=== PATIENT | male | born 1950 | race African-American/Black ===

== ENCOUNTER 2016-07-15 09:45 | Day surgery (SDC) | payer BC ==
[2016-07-15] MEDS ORDERED: Sodium Chloride 0.9% 10 ML Syringe FLUSH PRN (10:00)
[2016-07-15] MEDS ORDERED: Lactated Ringers 1,000 ML IV SCH (10:00)
[2016-07-15] MEDS ORDERED: fentaNYL 100 MCG/2 ML SDV ONE (11:58)
[2016-07-15] MEDS ORDERED: Propofol 200 MG/20 ML SDV ONE ×2 (11:59→12:10)
[2016-07-15] MEDS ORDERED: Midazolam 1 MG/ML 2 ML SDV ONE (11:59)
--- NOTE | 2016-07-15 12:05 | PCM.PN ---
- General Info Date of Service: 07/15/16 - Review of Systems Systems Review Comment:: 66-year-old male referred for colonoscopy. He states his last colonoscopy was over 10 years ago. He does recall that there were some polyps removed at that time. He denies any recent change in bowel habits or rectal bleeding. He is medically stable to proceed today with no significant change in his health status since his last history and physical which is reviewed. I discussed the proposed colonoscopy with the patient. Risks reviewed included but were not limited to bleeding and GI injury. He appears to understand and agrees to proceed. - Patient Data Vitals - most recent: Last Vital Signs Temp 97.8 F 07/15/16 10:19 Pulse 52 L 07/15/16 10:19 Resp 20 07/15/16 10:19 BP 150/102 H 07/15/16 10:19 Pulse Ox 100 07/15/16 10:19 Weight - most recent: 91.626 kg Med Orders - Current: Current Medications Lactated Ringer's (Ringers, Lactated) 1,000 mls @ 125 mls/hr IV ASDIRECTED JUAN Last Admin: 07/15/16 10:59 Dose: 125 mls/hr Sodium Chloride (Saline Flush) 10 ml FLUSH ASDIRECTED PRN PRN Reason: Keep Vein Open Discontinued Medications Fentanyl (Sublimaze) Confirm Administered Dose 100 mcg .ROUTE .STK-MED ONE Stop: 07/15/16 11:59 Midazolam HCl (Versed 1 Mg/Ml) Confirm Administered Dose 2 mg .ROUTE .STK-MED ONE Stop: 07/15/16 12:00 Propofol (Diprivan 20 Ml) Confirm Administered Dose 400 mg .ROUTE .STK-MED ONE Stop: 07/15/16 12:00 - Problem List Review Problem List Initiated/Reviewed/Updated: Yes - My Orders Last 24 Hours: My Active Orders 07/15/16 10:00 Patient Status [ADT] Routine Peripheral IV Care [RC] . DIRECTED Verify Patient Consent Obtain [RC] ASDIRECTED Lactated Ringers [Ringers, Lactated] 1,000 ml IV ASDIRECTED Sodium Chloride 0.9% [Saline Flush] 10 ml FLUSH ASDIRECTED PRN Peripheral IV Insertion Adult [OM.PC] Routine - Assessment Assessment:: Colon cancer screening History of colon polyps - Plan Plan:: Colonoscopy
--- NOTE | 2016-07-15 12:45 | PCM.OPNOTE ---
- General Post-Op/Procedure Note Date of Surgery/Procedure: 07/15/16 Operative Procedure(s): Colonoscopy with polypectomy Findings: Extensive diverticulosis throughout the left colon but without acute inflammation Polyps in the sigmoid colon and splenic flexure Pre Op Diagnosis: History of colon polyps Post-Op Diagnosis: Colon polyps and diverticulosis Anesthesia Technique: MAC Primary Surgeon: Norman Duncan Pathology: Colon Polyps Output, Urine Amount: 0 EBL in mLs: 0 Complications: None Condition: Good Free Text/Narrative:: Intake & Output 07/14/16 07/15/16 07/15/16 22:59 06:59 14:59 Intake Total 900 Balance 900
--- NOTE | 2016-07-15 16:47 | OR ---
Date of Procedure: 07/15/2016 PREOPERATIVE DIAGNOSIS: History of colon polyps. POSTOPERATIVE DIAGNOSES: Colon polyps and diverticulosis. TEST PERFORMED: Colonoscopy with polypectomy. INDICATIONS FOR SURGERY: This 66-year-old male is referred for colonoscopy. His last colon exam was over 10 years ago and some polyps were identified at that time. FINDINGS: The patient has a cluster of two polyps in the region of the splenic flexure. These range in size from 7 to 5 mm and are pedunculated, and the patient has another polyp, also 7 mm in size which is pedunculated and located in the sigmoid colon at 35 cm level. The patient has extensive diverticulosis with multiple diverticula noted throughout the left colon. There was no sign of acute inflammation or infection. PROCEDURE IN DETAIL: The patient was taken to the operating room. He was given intravenous sedation, and with him in the left lateral decubitus position, digital rectal exam was performed showing no rectal masses. The Olympus colonoscope was inserted into the rectum. Retroflexed examination of the rectal canal is performed. The scope was advanced to the sigmoid region where the above-described polyp was identified. This was removed with a cautery snare and retrieved into a polyp trap. The scope was then advanced up to the splenic flexure area where the two above-described polyps were identified. These were both removed with a cautery snare and retrieved into a polyp trap. All polyps were submitted to the pathologist. The scope was then carefully advanced through the transverse and ascending colon until the cecum was reached. Cecal acquisition was confirmed by noting the normal internal cecal anatomy including the appendiceal orifice and ileocecal valve. After examining the cecum, the scope was slowly withdrawn sequentially re-examining the colonic segments until the entire colon and rectum had been fully examined. The scope was then removed and the patient was taken from the operating room in satisfactory condition. ESTIMATED BLOOD LOSS: Zero. COMPLICATIONS: None. PROGNOSIS: Good. DESHAWN Duncan MD /[id number]
[2016-07-15 18:29] VITALS: BP 121/84
== END 2016-07-15 13:55 | disposition home or self-care (01) ==
LOC: LL.SDS 09:45
PROVIDERS: ATTEND Surgery
DX: Z12.11 Encounter for screening for malignant neoplasm of colon (principal); D12.5 Benign neoplasm of sigmoid colon; D12.3 Benign neoplasm of transverse colon; K57.30 Diverticulosis of large intestine without perforation or abscess without bleeding; E89.0 Postprocedural hypothyroidism; Z79.899 Other long term (current) drug therapy
CPT/HCPCS: 45385; J2250; J2704; J3010; J7120

== ENCOUNTER 2016-09-17 12:23 | Observation (INO) | payer BC ==
[2016-09-17] MEDS ORDERED: Nitroglycerin 0.4 MG Tab.SL SL ONE (12:24)
[2016-09-17] MEDS ORDERED: Sodium Chloride 0.9% 10 ML Syringe FLUSH PRN (12:25)
--- NOTE | 2016-09-17 13:09 | EDM.PDOC ---
ED HPI GENERAL MEDICAL PROBLEM - General Chief Complaint: General Stated Complaint: Shoulder pain, Chest pain Time Seen by Provider: 09/17/16 12:45 Source of Information: Reports: Patient History Limitations: Reports: No Limitations - History of Present Illness INITIAL COMMENTS - FREE TEXT/NARRATIVE: Woke this morning with left sided chest pain. Patient points to left chest and shoulder area as region of discomfort. Pain constant. Unchanging with breathing/ moving/position changes. Denies SOB/nausea/sweating. Denies other complaints. Has had episodes similar to this in past. Pain is left sided and lasts 2-3 days before resolving. No specific trigger identified. Was seen in ER twice in [place] around for same complaint. Workup included stress test. Unremarkable per patient. No cardiac pathology found. ROS otherwise negative. He is not aware of any cardiac disease in family history. Was out gardening yesterday. Also performed his routine "exercises" at home. Left Shoulder Pain Score (Numeric/FACES): 2 - Related Data Allergies Allergy/AdvReac Type Severity Reaction Status Date / Time No Known Allergies Allergy Verified 07/15/16 02:30 Home Meds: Home Meds Ascorbate Calcium/Bioflavonoid [Sharon-C 500 MG] 1 tab PO DAILY 07/15/16 [History ] Cyanocobalamin (Vitamin B-12) [B-12] 1,000 mcg PO DAILY 07/15/16 [History] Fish Oil/Borage/Flax/Om3,6,9#1 [[place] 3-6-9 Complex Softgel] 400 mg PO DAILY [History] Levothyroxine Sodium 88 mcg PO DAILY 07/15/16 [History] Pyridostigmine [place] [Mestinon] 60 mg PO QID 07/15/16 [History] Vitamin B Complex 1 cap PO DAILY 07/15/16 [History] Past Medical History HEENT History: Reports: Cataract Cardiovascular History: Reports: High Cholesterol Respiratory History: Reports: None Gastrointestinal History: Reports: None Genitourinary History: Reports: None Musculoskeletal History: Reports: None Neurological History: Reports: Other (See Below) (myasthenia gravis) Psychiatric History: Reports: None Endocrine/Metabolic History: Reports: Obesity/BMI 30+ Hematologic History: Reports: B12 Deficiency Immunologic History: Reports: None Oncologic (Cancer) History: Reports: None Dermatologic History: Reports: None - Past Surgical History Head Surgeries/Procedures: Reports: None HEENT Surgical History: Reports: Cataract Surgery Endocrine Surgical History: Reports: Thyroidectomy Social & Family History - Tobacco Use Smoking Status *Q: Never Smoker Second Hand Smoke Exposure: No - Caffeine Use Caffeine Use: Reports: Tea - Recreational Drug Use Recreational Drug Use: No ED ROS GENERAL - Review of Systems Review Of Systems: See Below Constitutional: Reports: No Symptoms HEENT: Reports: No Symptoms Respiratory: Reports: No Symptoms. Denies: Shortness of Breath, Wheezing, Pleuritic Chest Pain, Cough, Sputum, Hemoptysis Cardiovascular: Reports: Chest Pain (see HPI). Denies: Dyspnea on Exertion, Edema, Lightheadedness, Orthopnea, Palpitations, Syncope GI/Abdominal: Reports: No Symptoms : Reports: No Symptoms Musculoskeletal: Reports: Shoulder Pain (see HPI). Denies: Arm Pain, Back Pain , Hand Pain, Joint Swelling, Muscle Stiffness Skin: Reports: No Symptoms Neurological: Reports: No Symptoms Psychiatric: Reports: No Symptoms ED EXAM, GENERAL - Physical Exam Exam: See Below Exam Limited By: No Limitations General Appearance: Alert, WD/WN, No Apparent Distress Eye Exam: Bilateral Eye: EOMI, PERRL Ears: Normal External Exam Nose: Normal Inspection Throat/Mouth: Normal Inspection, Normal Lips, Normal Voice, No Airway Compromise Head: Atraumatic, Normocephalic Neck: Normal Inspection, Supple, Non-Tender, Full Range of Motion. No: Carotid Bruit, Lymphadenopathy (L), Lymphadenopathy (R) Respiratory/Chest: No Respiratory Distress, Lungs Clear, Normal Breath Sounds, No Accessory Muscle Use, Chest Non-Tender Cardiovascular: Normal Peripheral Pulses, Regular Rate, Rhythm, No Edema, No Gallop, No JVD, No Murmur Peripheral Pulses: 2+: Radial (L), Radial (R) GI/Abdominal: Normal Bowel Sounds, Soft, Non-Tender, No Distention, No Mass (Male) Exam: Deferred Rectal (Males) Exam: Deferred Back Exam: Normal Inspection. No: CVA Tenderness (L), CVA Tenderness (R), Paraspinal Tenderness, Vertebral Tenderness Extremities: Normal Inspection, Normal Range of Motion, Non-Tender, No Pedal Edema, Normal Capillary Refill Neurological: Alert, Oriented, CN II-XII Intact, Normal Cognition, Normal Gait, No Motor/Sensory Deficits Psychiatric: Normal Affect, Normal Mood Skin Exam: Warm, Dry, Intact, Normal Color, No Rash EKG INTERPRETATION EKG Date: 09/17/16 Time: 12:58 Rhythm: Other (Sinus rhythm) Rate (Beats/Min): 70 [place]: Normal P-Wave: Present QRS: Normal ST-T: Normal QT: Normal Comparison: NA - No Prior EKG EKG Interpretation Comments: P-R interval 213/prolonged consistent with 1st degree AV block. Intermittent premature atrial complexes noted. Course - Vital Signs Last Recorded V/S: Last Vital Signs Temp 36.7 C 09/17/16 12:45 Pulse 67 09/17/16 14:08 Resp 18 09/17/16 14:08 BP 114/84 09/17/16 14:08 Pulse Ox 98 09/17/16 14:55 - Orders/Labs/Meds Orders: Active Orders 24 hr Category Date Time Status Chest 2V [CR] Stat Exams 09/17/16 13:03 Taken Sodium Chloride 0.9% [Saline Flush] Med 09/17/16 12:25 Active 10 ml FLUSH ASDIRECTED PRN Saline Lock Insert [OM.PC] Routine Oth 09/17/16 12:25 Ordered Medication Orders Acetaminophen (Tylenol) 650 mg PO Q4H PRN PRN Reason: analgesia/fever Levothyroxine Sodium (Synthroid) 88 mcg PO DAILY JUAN Non-Formulary Medication (Pyridostigmine) 60 mg PO QID JUAN Sodium Chloride (Saline Flush) 10 ml FLUSH ASDIRECTED PRN PRN Reason: Keep Vein Open Labs: Laboratory Tests 09/17/16 09/17/16 09/17/16 Range/Units 13:03 13:03 13:15 WBC 4.8 (4.0-10.2) K/uL RBC 4.82 (4.33-5.41) M/uL Hgb 13.5 (13.1-16.8) g/dL Hct 38.6 L (39.0-49.0) % MCV 80.1 L (84.0-98.0) fL MCH 28.0 L (28.2-33.3) pg MCHC 35.0 (31.7-36.0) g/dL RDW 13.8 (11.2-14.1) % Plt Count 197 (150-350) K/uL Neut % (Auto) 46.9 (45.0-80.0) % Lymph % (Auto) 40.7 (10.0-50.0) % [place] % (Auto) 11.0 (2.0-14.0) % Eos % (Auto) 0.8 (0.0-5.0) % Baso % (Auto) 0.6 (0.0-2.0) % Neut # (Auto) 2.25 (1.40-7.00) K/uL Lymph # (Auto) 1.96 (0.50-3.50) K/uL [place] # (Auto) 0.53 (0.00-1.00) K/uL Eos # (Auto) 0.04 (0.00-0.50) K/uL Baso # (Auto) 0.03 (0.00-0.20) K/uL PT (9.8-11.7) SEC INR Sodium 142 (136-145) mmol/L Potassium 4.1 (3.5-5.1) mmol/L Chloride 108 H (98-107) mmol/L Carbon Dioxide 29.0 (21.0-32.0) mmol/L BUN 12 (7-18) mg/dL Creatinine 0.81 (0.51-1.17) mg/dL Est Cr Clr Drug Dosing 86.79 mL/min Estimated GFR (MDRD) > 60 mL/min Glucose 95 (74-106) mg/dL Calcium 8.7 (8.5-10.1) mg/dL Total Bilirubin 0.9 (0.2-1.0) mg/dL AST 33 (15-37) U/L ALT 42 (12-78) U/L Alkaline Phosphatase 62 (46-116) IU/L Creatine Kinase (26-308) U/L Creatine Kinase Index (0.0-2.5) % CK-MB (CK-2) (0.00-3.60) ng/mL Troponin I 0.026 (0.000-0.056) ng/mL Total Protein 7.4 (6.4-8.2) g/dL Albumin 3.6 (3.4-5.0) g/dL Specimen Type Urinblad Urine Color Yellow Urine Appearance Clear Urine pH 6.5 (5.0-9.0) Ur Specific [place] 1.015 (1.005-1.030) Urine Protein Negative (NEGATIVE) mg/dL Urine Glucose (UA) Negative (NEGATIVE) mg/dL Urine Ketones Negative (NEGATIVE) mg/dL Urine Occult Blood Negative (NEGATIVE) Urine Nitrite Negative (NEGATIVE) Urine Bilirubin Negative (NEGATIVE) Urine Urobilinogen 0.2 (0.2-1.0) E.U./dL Ur Leukocyte Esterase Negative (NEGATIVE) Urine RBC 0-5 /HPF Urine WBC 0-5 /HPF Ur Epithelial Cells Not seen /LPF Urine Bacteria Not seen (NONE TO FEW) /HPF 09/17/16 09/17/16 Range/Units 13:15 13:15 WBC (4.0-10.2) K/uL RBC (4.33-5.41) M/uL Hgb (13.1-16.8) g/dL Hct (39.0-49.0) % MCV (84.0-98.0) fL MCH (28.2-33.3) pg MCHC (31.7-36.0) g/dL RDW (11.2-14.1) % Plt Count (150-350) K/uL Neut % (Auto) (45.0-80.0) % Lymph % (Auto) (10.0-50.0) % [place] % (Auto) (2.0-14.0) % Eos % (Auto) (0.0-5.0) % Baso % (Auto) (0.0-2.0) % Neut # (Auto) (1.40-7.00) K/uL Lymph # (Auto) (0.50-3.50) K/uL [place] # (Auto) (0.00-1.00) K/uL Eos # (Auto) (0.00-0.50) K/uL Baso # (Auto) (0.00-0.20) K/uL PT 11.4 (9.8-11.7) SEC INR 1.1 Sodium (136-145) mmol/L Potassium (3.5-5.1) mmol/L Chloride (98-107) mmol/L Carbon Dioxide (21.0-32.0) mmol/L BUN (7-18) mg/dL Creatinine (0.51-1.17) mg/dL Est Cr Clr Drug Dosing mL/min Estimated GFR (MDRD) mL/min Glucose (74-106) mg/dL Calcium (8.5-10.1) mg/dL Total Bilirubin (0.2-1.0) mg/dL AST (15-37) U/L ALT (12-78) U/L Alkaline Phosphatase (46-116) IU/L Creatine Kinase 296 (26-308) U/L Creatine Kinase Index 0.7 (0.0-2.5) % CK-MB (CK-2) 2.10 (0.00-3.60) ng/mL Troponin I (0.000-0.056) ng/mL Total Protein (6.4-8.2) g/dL Albumin (3.4-5.0) g/dL Specimen Type Urine Color Urine Appearance Urine pH (5.0-9.0) Ur Specific [place] (1.005-1.030) Urine Protein (NEGATIVE) mg/dL Urine Glucose (UA) (NEGATIVE) mg/dL Urine Ketones (NEGATIVE) mg/dL Urine Occult Blood (NEGATIVE) Urine Nitrite (NEGATIVE) Urine Bilirubin (NEGATIVE) Urine Urobilinogen (0.2-1.0) E.U./dL Ur Leukocyte Esterase (NEGATIVE) Urine RBC /HPF Urine WBC /HPF Ur Epithelial Cells /LPF Urine Bacteria (NONE TO FEW) /HPF Meds: Medications Generic Name Dose Route Start Last Admin Trade Name Freq PRN Reason Stop Dose Admin Acetaminophen 650 mg 09/17/16 15:00 Tylenol PO Q4H PRN analgesia/fever Levothyroxine Sodium 88 mcg 09/18/16 08:00 Synthroid PO DAILY JUAN Non-Formulary Medication 60 mg 09/17/16 16:00 Pyridostigmine PO QID JUAN Sodium Chloride 10 ml 09/17/16 12:25 Saline Flush FLUSH ASDIRECTED PRN Keep Vein Open Discontinued Medications Generic Name Dose Route Start Last Admin Trade Name Freq PRN Reason Stop Dose Admin Nitroglycerin 0.4 mg 09/17/16 12:24 09/17/16 12:33 Nitrostat SL 09/17/16 12:25 0.4 mg ONETIME ONE Administration Nitroglycerin 0.4 mg 09/17/16 15:00 Nitrostat SL 09/17/16 15:11 Q5M PRN Chest Pain - Radiology Interpretation Free Text/Narrative:: Chest film showed no acute abnormalities - Re-Assessments/Exams Free Text/Narrative Re-Assessment/Exam: 09/17/16 15:40 Initial workup including EKG/Troponin/labs/chest xray overall unremarkable. Pain resolved completely after single NTG given. Admitted for further observation and serial troponins. Differential includes cardiac/GI/musc-skel etiology. Again, patient had recent negative stress test as well as two other ER evaluations for this same pain earlier this year. Departure - Departure Time of Disposition: 14:00 Disposition: Refer to Observation Clinical Impression: Myasthenia gravis Chest pain Qualifiers: Chest pain type: unspecified Qualified Code(s): R07.9 - Chest pain, unspecified - Discharge Information - Problem List & Annotations (1) Chest pain SNOMED Code(s): 10966610 Code(s): R07.9 - CHEST PAIN, UNSPECIFIED Status: Acute Priority: High Current Visit: Yes Annotation/Comment:: Serial Troponin/CKMB/EKG ordered. Currently pain-free. Qualifiers: Chest pain type: unspecified Qualified Code(s): R07.9 - Chest pain, unspecified (2) Myasthenia gravis SNOMED Code(s): 64517781 Code(s): G70.00 - MYASTHENIA GRAVIS WITHOUT (ACUTE) EXACERBATION Status: Chronic Priority: Low Current Visit: No - Problem List Review Problem List Initiated/Reviewed/Updated: Yes - My Orders Last 24 Hours: My Active Orders 09/17/16 12:25 Sodium Chloride 0.9% [Saline Flush] 10 ml FLUSH ASDIRECTED PRN Saline Lock Insert [OM.PC] Routine 09/17/16 13:03 Chest 2V [CR] Stat - Assessment/Plan Admission H&P: Please use this note as an admission H&P Last 24 Hours: My Active Orders 09/17/16 12:25 Sodium Chloride 0.9% [Saline Flush] 10 ml FLUSH ASDIRECTED PRN Saline Lock Insert [OM.PC] Routine 09/17/16 13:03 Chest 2V [CR] Stat Assessment:: as above Plan: as above
[2016-09-17 13:36] LABS: CHLORIDE,CL 108 mmol/L (98-107); SODIUM,NA 142 mmol/L (136-145)
[2016-09-17] MEDS ORDERED: Acetaminophen 325 MG Tab PO PRN (15:00)
[2016-09-17] MEDS ORDERED: Nitroglycerin 0.4 MG Tab.SL SL PRN (15:00)
[2016-09-17] MEDS ORDERED: Non-Formulary Medication 1 Each (Pyridostigmine 60 MG) PO SCH (16:00)
[2016-09-18 06:20] VITALS: BP 122/67
[2016-09-18] MEDS ORDERED: Levothyroxine 88 MCG Tab PO SCH (08:00)
--- NOTE | 2016-09-18 10:52 | PCM.DCSUM1 ---
Discharge Summary - Discharge Data Discharge Date: 09/18/16 Discharge Disposition: Home, Self-Care 01 Condition: Good - Discharge Diagnosis/Problem(s) (1) Chest pain SNOMED Code(s): 96840531 ICD Code: R07.9 - CHEST PAIN, UNSPECIFIED Status: Acute Priority: High Current Visit: Yes Problem Details: Patient remained pain-free during admission. Troponin/CKMB normal. Qualifiers: Chest pain type: unspecified Qualified Code(s): R07.9 - Chest pain, unspecified (2) Myasthenia gravis SNOMED Code(s): 80838899 ICD Code: G70.00 - MYASTHENIA GRAVIS WITHOUT (ACUTE) EXACERBATION Status: Chronic Priority: Low Current Visit: No - Patient Summary/Data Complications: None Recommended Follow-up Testing/Procedures: Patient to call primary provider's office on Tuesday and arrange follow up appointment as well as referral to Cardiology for further evaluation of the chest pain. Hospital Course: Patient symptom-free after admission. Vital signs stable. monitoring tech continued to show sinus rhythm with PACs. Serial troponin/CKMB negative. No acute ST changes noted on EKGs. - Patient Instructions Diet: Heart Healthy Diet Activity: As Tolerated, No Strenuous Activities Driving: May Drive Today Showering/Bathing: May Shower Other/Special Instructions: Return to ER if chest pain returns, especially if accompanied by shortness of breath, diaphoresis, or nausea. - Discharge Plan Prescriptions/Med Rec: Nitroglycerin 0.3 mg SL ASDIRECTED PRN #1 bottle PRN Reason: Chest Pain Home Medications: Home Meds Ascorbate Calcium/Bioflavonoid [Sharon-C 500 MG] 1 tab PO DAILY 07/15/16 [History ] Cyanocobalamin (Vitamin B-12) [B-12] 1,000 mcg PO DAILY 07/15/16 [History] Fish Oil/Borage/Flax/Om3,6,9#1 [[place] 3-6-9 Complex Softgel] 400 mg PO DAILY [History] Levothyroxine Sodium 88 mcg PO DAILY 07/15/16 [History] Pyridostigmine [place] [Mestinon] 60 mg PO QID 07/15/16 [History] Vitamin B Complex 1 cap PO DAILY 07/15/16 [History] Nitroglycerin 0.3 mg SL ASDIRECTED PRN #1 bottle 09/18/16 [Rx] Patient Handouts: Nonspecific Chest Pain, [id number] Forms: ED Department Discharge Referrals: Esvin Morgan PA [Primary Care Provider] - - Discharge Summary/Plan Comment DC Time >30 min.: No Discharge Summary/Plan Comment: Patient to scrap picker Nitro SL for prn use if chest pain returns. He is to follow up Tuesday by phone with primary provider and arrange follow up appointment as well as referral to Cardiology. Extensive precautions reviewed prior to discharge. Patient knows he is to return to the ER if he re-develops the chest pain. - General Info Date of Service: 09/18/16 Admission Dx/Problem (Free Text: left sided chest pain, relieved in ER with one Nitro SL. Subjective Update: Patient feels good. No complaints. Functional Status: Reports: pain controlled, tolerating diet, ambulating, urinating - Review of Systems General: Reports: No Symptoms HEENT: Reports: no symptoms Pulmonary: Reports: no symptoms Cardiovascular: Reports: No Symptoms Gastrointestinal: Reports: No symptoms Genitourinary: Reports: no symptoms Musculoskeletal: Reports: no symptoms Skin: Reports: no symptoms Neurological: Reports: No Symptoms Psychiatric: Reports: no symptoms - Patient Data Vitals - Most Recent: Last Vital Signs Temp 36.5 C 09/18/16 06:00 Pulse 54 L 09/18/16 06:00 Resp 16 09/18/16 06:00 BP 122/67 09/18/16 06:00 Pulse Ox 100 09/18/16 06:00 Weight - Most Recent: 93.894 kg I&O - Last 24 hours: Intake & Output 09/17/16 09/18/16 09/18/16 22:59 06:59 14:59 Intake Total 240 180 Balance 240 180 Lab Results - Last 24 hrs: Laboratory Results - last 24 hr 09/17/16 09/17/16 09/18/16 Range/Units 17:45 23:15 09:25 Creatine Kinase 192 (26-308) U/L Creatine Kinase Index 0.7 (0.0-2.5) % CK-MB (CK-2) 1.30 (0.00-3.60) ng/mL Troponin I 0.025 0.020 0.015 (0.000-0.056) ng/mL Med Orders - Current: Current Medications Acetaminophen (Tylenol) 650 mg PO Q4H PRN PRN Reason: analgesia/fever Levothyroxine Sodium (Synthroid) 88 mcg PO DAILY [facility] Last Admin: 09/18/16 07:41 Dose: 88 mcg Sodium Chloride (Saline Flush) 10 ml FLUSH ASDIRECTED PRN PRN Reason: Keep Vein Open Discontinued Medications Nitroglycerin (Nitrostat) 0.4 mg SL ONETIME ONE Stop: 09/17/16 12:25 Last Admin: 09/17/16 12:33 Dose: 0.4 mg Nitroglycerin (Nitrostat) 0.4 mg SL Q5M PRN PRN Reason: Chest Pain Stop: 09/17/16 15:11 Non-Formulary Medication (Pyridostigmine) 60 mg PO QID JUAN - Exam General: Reports: alert, oriented, cooperative, no acute distress HEENT: Reports: Pupils equal, Pupils reactive, EOMI, Mucous membr. moist/pink Neck: Reports: supple Lungs: Reports: Clear to auscultation, Normal respiratory effort Cardiovascular: Reports: Regular Rhythm, Irregular Rhythm. Denies: Murmurs Abdomen: Reports: bowel sounds present, soft, no tenderness, no distension Back Exam: Denies: Muscle Spasm Extremities: Reports: no tenderness/swelling Skin: Reports: warm, dry, intact Neurological: Reports: no new focal deficit Psy/Mental Status: Reports: alert, normal affect, normal mood EKG INTERPRETATION EKG Date: 09/18/16 Time: 10:09 Rhythm: Other (Sinus with intermittent PACs, borderline 1st degree AV block) Rate (Beats/Min): 60 [place]: Normal P-Wave: Present QRS: Normal ST-T: Normal QT: Shortened Comparison: No Change *Q Meaningful Use (DIS) - VTE *Q VTE Criteria *Q: - Stroke *Q Stroke Criteria *Q: - AMI *Q AMI Criteria *Q:
== END 2016-09-18 11:30 | disposition home or self-care (01) ==
LOC: LL.ED 12:23 → LL.MS 13:45
PROVIDERS: ADMIT Emergency Medicine; ATTEND Emergency Medicine
DX: R07.89 Other chest pain (principal); G70.00 Myasthenia gravis without (acute) exacerbation; E78.00 Pure hypercholesterolemia, unspecified; E66.9 Obesity, unspecified; E53.8 Deficiency of other specified B group vitamins; E89.0 Postprocedural hypothyroidism; Z98.49 Cataract extraction status, unspecified eye; Z79.899 Other long term (current) drug therapy
CPT/HCPCS: 36000; 36415; 71020; 80053; 81001; 82550; 82553; 84484; 85025; 85610; 93005; 99285; A9270; G0378

== ENCOUNTER 2017-04-24 12:02 | Emergency (ER) | payer BC ==
[2017-04-24 12:08] VITALS: BP 190/114
[2017-04-24] MEDS ORDERED: Aspirin 81 MG Tab.Chew ONE (12:39)
[2017-04-24] MEDS ORDERED: Aspirin 81 MG Tab.Chew PO ONE (12:40)
[2017-04-24 13:01] LABS: CHLORIDE,CL 106 mmol/L (98-107); SODIUM,NA 143 mmol/L (136-145)
--- NOTE | 2017-04-25 17:04 | ER ---
PATIENT NAME: DONNY BERRY : 1950 DATE: 04/24/2017 The patient is a 66-year-old male was brought in by son with chief complaint of weakness in his left side, difficulty walking and slurred speech. The patient states he was shoveling snow the night before coming in at around 6:00 p.m. and started feeling weak on the left side with numbness of his left side. After he started feeling the above complaints, he went inside the house, took a shower and then started with left-sided tingling with increased numbness in his left side of the face. He also had headaches the night prior to coming to the ER. PHYSICAL EXAMINATION: GENERAL: Revealed an alert, oriented gentleman in mild discomfort. HEENT: Eyes were PERRLA. Extraocular movement intact. Right eyelid was weak secondary to myasthenia gravis. Left face weakness with slurred speech. No tongue deviation. NECK: Supple. LUNGS: Clear to auscultation. No rales, no rhonchi, no wheezing. HEART: Regular rate and rhythm. No murmurs, no gallops. ABDOMEN: Soft, nontender. No masses. No organomegaly. EXTREMITIES: Show full range of motion. No weakness to strength. Strength was equal bilaterally. The patient did complain of left leg weakness, felt that if he attempted to walk he would fall. ASSESSMENT: At this time is possible right cerebrovascular accident, weakness in left side, difficulty walking, numbness in his left side of the face and slurred speech. PLAN: At this time, we did a CAT scan, showed no intracranial bleeding. We spoke with Neurology on-call at [facility] and Neurology will transfer him to obtain an MRI and follow stroke protocol.
== END 2017-04-24 12:57 ==
LOC: LL.ED 12:02
DX: R26.2 Difficulty in walking, not elsewhere classified (principal); R20.0 Anesthesia of skin; M62.81 Muscle weakness (generalized)
CPT/HCPCS: 36000; 36415; 70450; 80053; 85025; 85610; 85730; 99291; A9270